=== PATIENT | male | born 1990 | race Caucasian/White ===

== ENCOUNTER → 2017-11-26 | Outpatient (CLI) | payer OTHER ==
--- NOTE | 2017-11-26 12:13 | Diagnostic Imaging Report ---
Right hand MRI without contrast. History: Nondisplaced fracture of the index finger. Crush injury. Comparison: None Technique: Multiplanar multisequence MRI of the right hand without contrast. Findings: There is a nondisplaced fracture involving the middle phalanx of the index finger with associated bone marrow edema and adjacent soft tissue edema. This is best seen on sagittal series 6 image 11 through 13, coronal series 5 image 13 and 14 and axial series 2 image 44 through 48. No ligamentous or tendon tear is seen. The visualized muscles are normal in size, signal intensity and morphology. The visualized neurovascular bundles are intact. Impression: Nondisplaced fracture involving the middle phalanx of the index finger with associated bone marrow edema and adjacent soft tissue edema. No ligamentous or tendon tear is seen. Signed by: Dr. Juan Gould M.D. on 11/26/2017 12:10 PM
== END ==
LOC: MRI 09:16
PROVIDERS: ATTEND Family Medicine
DX: S62.650D Nondisplaced fracture of middle phalanx of right index finger, subsequent encounter for fracture with routine healing (principal)